=== PATIENT | male | born 1985 | race American Indian/Alaskan Native ===

== ENCOUNTER 2018-09-07 16:38 | Emergency (ER) | payer BC ==
[2018-09-07] MEDS ORDERED: TDAP Vaccine 0.5 mL Syr IM ONE (17:21)
--- NOTE | 2018-09-07 17:45 | ED PDOC ---
Arrival/HPI - General Chief Complaint: Trauma Time Seen by Provider: 09/07/18 16:43 Historian: Patient - History of Present Illness Narrative History of Present Illness (Text): 09/07/18 17:45 33yr old male presents today with scalp laceration s/p head injury. pt states while at the gym the metal pin broke causing him to be hit in the front of the head with the metal triangular metal handle. no LOC. pt c/o frontal headache, dizziness and nausea. denies blurry vision. denies neck pain. no fever/chills. no other complaints. incident occurred prior to arrival. Past Medical History - Provider Review Nursing Documentation Reviewed: Yes - Travel History Have you recently traveled outside [place] w/in the past 3 mons?: No - Infectious Disease Hx of Infectious Diseases: None - Tetanus Immunization Tetanus Immunization: Unknown - Psychiatric Hx Substance Use: No Family/Social History - Physician Review Nursing Documentation Reviewed: Yes Family/Social History: Unknown Family HX Smoking Status: Never Smoked Hx Alcohol Use: Yes Frequency of alcohol use: Socially Hx Substance Use: No Allergies/Home Meds Allergies/Adverse Reactions: Allergies No Known Allergies Allergy (Verified 09/07/18 16:43) Home Medications: Home Meds Medication Instructions Recorded Confirmed No Known Home Med 09/07/18 09/07/18 Review of Systems - Review of Systems Constitutional: absent: Fatigue, Fevers Eyes: Photophobia. absent: Vision Changes, Eye Pain ENT: absent: Sore Throat, Epistaxis Respiratory: absent: SOB, Cough Cardiovascular: absent: Chest Pain, Palpitations Gastrointestinal: absent: Abdominal Pain, Nausea, Vomiting Genitourinary Male: absent: Dysuria, Frequency, Hematuria Musculoskeletal: absent: Arthralgias, Back Pain, Neck Pain Skin: Laceration Neurological: Headache, Dizziness Psychiatric: absent: Anxiety, Depression, Suicidal Ideation Physical Exam Vital Signs Reviewed: Yes Vital Signs Temp Pulse Resp BP Pulse Ox 09/07/18 16:47 97.8 F 98 H 18 139/84 100 Temperature: Afebrile Blood Pressure: Normal Pulse: Regular Respiratory Rate: Normal Appearance: Positive for: Well-Appearing, Non-Toxic, Comfortable Pain Distress: None Mental Status: Positive for: Alert and Oriented X 3 - Systems Exam Head: Present: Laceration (small 2cm superficial laceration noted to the frontal scalp; no active bleeding. no step offs or crepitis. ). No: Atraumatic Pupils: Present: PERRL Extroacular Muscles: Present: EOMI Conjunctiva: Present: Normal Ears: Present: Normal, NORMAL TM Mouth: Present: Moist Mucous Membranes Pharnyx: Present: Normal Neck: Present: Normal Range of Motion, Trachea Midline. No: MIDLINE TENDERNESS Respiratory/Chest: Present: Clear to Auscultation, Good Air Exchange. No: Respiratory Distress, Accessory Muscle Use Cardiovascular: Present: Regular Rate and Rhythm Upper Extremity: Present: Normal Inspection, Normal ROM Lower Extremity: Present: Normal ROM Neurological: Present: GCS=15, Speech Normal Skin: Present: Warm, Dry, Normal Color. No: Rashes Psychiatric: Present: Alert, Oriented x 3 Medical Decision Making ED Course and Treatment: 09/07/18 17:50 33yr old male with head injury c/o headache, dizziness, nausea without vomiting and laceration. pt is alert and oriented. no distress. zofran given for nausea. tetanus updated. wound cleaned and irrigated with high pressure irrigation. [address]; FINDINGS: BRAIN No acute intraparenchymal hemorrhage. No mass lesion. No CT evidence for acute territorial infarct. No midline shift or extra-axial collections. VENTRICLES: No hydrocephalus. ORBITS: The orbits are unremarkable. SINUSES AND MASTOIDS: The paranasal sinuses and mastoid air cells are clear. BONES: No fracture. SOFT TISSUES: Unremarkable. IMPRESSION: No acute intracranial abnormality. pt reassessment; pt feeling better. vitals stable. no vomiting in er. discussed all results in depth with patient. advised Advised keep the wound clean and dry and apply bacitracin twice daily. Advised follow-up with a neurologist for postconcussive symptoms. Advised immediate return if symptoms worsen persist or if new concerning symptoms develop for signs of infection develop. Advised immediate return if headache worsens, increased dizziness, vomiting or any other concerning symptoms develop. Patient verbalizes understanding of discharge instructions and need for immediate followup. all aspects of this case were discussed the attending of record. impression; Laceration, scalp, head injury tylenol every 4 hours as needed for pain Keep the wound clean and dry, apply bacitracin twice daily Return in 10 days for staple removal Return immediately if signs of infection develop: High fevers, increasing pain, redness, swelling, purulent discharge Followup with primary care physician within the next 2 days Follow up with the neurologist within the next 2 days. Return if any other concerning symptoms develop Reassessment Condition: Re-examined, Improved - RAD Interpretation Radiology Orders: 09/07/18 17:20 HEAD W/O CONTRAST [CT] Stat - Medication Orders Current Medication Orders: Discontinued Medications Acetaminophen (Tylenol 325mg Tab) 975 mg PO STAT STA Stop: 09/07/18 17:22 Ondansetron HCl (Zofran Odt) 4 mg PO STAT STA Stop: 09/07/18 17:22 Tetanus/Reduced Diphtheria/Acell Pertussis (Boostrix Vaccine Inj) 0.5 ml IM .ONCE ONE Stop: 09/07/18 17:22 Procedure: Wound Repair - Procedure Procedure: Wound Repair: scalp laceration - Performed by Performed by: Mid-level Provider - Indications Indication(s):: Laceration - Location Shape:: Linear Dimensions Length cm: 2cm Depth:: Epidermis - Anesthetic Technique Local/Regional Anesthetic:: Other (NONE) - Debris Debris:: None - Irrigated Irrigated with ml of normal saline: copious amounts of NS using high pressure irrigation - Complexity Complexity:: Simple (one layer) - Wound repair method Sutures:: # (1 staple) - Complications Complications: none - Patient tolerated procedure Patient Tolerated Procedure:: Well Disposition/Present on Arrival - Present on Arrival Any Indicators Present on Arrival: Yes History of DVT/PE: No History of Uncontrolled Diabetes: No Urinary Catheter: No History of Decub. Ulcer: No History Surgical Site Infection Following: None - Disposition Have Diagnosis and Disposition been Completed?: Yes Diagnosis: Head injury, Laceration of scalp Disposition: HOME/ ROUTINE Disposition Time: 17:55 Patient Plan: Discharge Condition: GOOD Discharge Instructions (ExitCare): Laceration Repair With Ajit (DC), Minor Head Injury (DC) Additional Instructions: tylenol every 4 hours as needed for pain Keep the wound clean and dry, apply bacitracin twice daily Return in 10 days for staple removal Return immediately if signs of infection develop: High fevers, increasing pain, redness, swelling, purulent discharge Followup with primary care physician within the next 2 days Follow up with the neurologist within the next 2 days. Return if any other concerning symptoms develop Referrals: Ana Miles MD [Staff Provider] - Follow up with primary Braulio,Shy, MD [Medical Doctor] - Follow up with primary [facility] [Outside] - Follow up with primary Forms: [employer] (Serbian), WORK NOTE
[2018-09-07] MEDS ORDERED: Bacitracin 500 Units/gm Oint Foilpak UD ONE (20:09)
[2018-09-08 00:48] VITALS: BP 137/74; PULSE 89; RESP 18; TEMP 97.8; O2SAT 100; BMI 28.8
--- NOTE | 2018-09-08 08:15 | CT ---
Date of service: 09/07/2018 PROCEDURE: CT HEAD WITHOUT CONTRAST. HISTORY: headache/head injury COMPARISON: None available. TECHNIQUE: Axial computed tomography images were obtained through the head/brain without intravenous contrast. Radiation dose: Total exam DLP = 866.85 mGy-cm. This CT exam was performed using one or more of the following dose reduction techniques: Automated exposure control, adjustment of the mA and/or kV according to patient size, and/or use of iterative reconstruction technique. FINDINGS: HEMORRHAGE: No intracranial hemorrhage. BRAIN: No mass effect or edema. No atrophy or chronic microvascular ischemic changes. VENTRICLES: Unremarkable. No hydrocephalus. CALVARIUM: Unremarkable. PARANASAL SINUSES: Unremarkable as visualized. No significant inflammatory changes. MASTOID AIR CELLS: Unremarkable as visualized. No inflammatory changes. OTHER FINDINGS: The report concurs with the preliminary [facility] report IMPRESSION: No acute intracranial findings
== END 2018-09-07 20:17 | disposition home or self-care (01) ==
LOC: ED 16:38
DX: S01.01XA Laceration without foreign body of scalp, initial encounter (principal); W22.8XXA Striking against or struck by other objects, initial encounter; Y92.39 Other specified sports and athletic area as the place of occurrence of the external cause; Z23 Encounter for immunization